=== PATIENT | male | born 1970 | race African-American/Black ===

== ENCOUNTER 2022-10-12 08:41 | Day surgery (SDC) | payer MEDICAID ==
[~2022-10-12] VITALS: Ht 180.3 cm; Wt 109.2 kg
[2022-10-12] VITALS (21 sets, daily range): BP systolic 84–134; BP diastolic 47–97
[2022-10-12] MEDS ORDERED: NS IV 1000 ML 1,000 ML IV ONE ×2 (10:00→10:15)
[2022-10-12] MEDS ORDERED: LIDOCAINE 2% VISCOUS 15 ML UDC ONE (10:02)
[2022-10-12] MEDS ORDERED: NS IV 1000 ML 1,000 ML ONE (10:02)
[2022-10-12 10:34] LABS: HEMATOCRIT 47 % (40-54); MEAN CORPUSCULAR HEMOGLOBIN 30 pg (25-34); MEAN CORPUSCULAR HGB CONC 34 g/dL (32-36); MEAN CORPUSCULAR VOLUME 87 fL (80-99); MEAN PLATELET VOLUME 11.1 fL (9.0-12.2); PLATELET COUNT 229 10^3/uL (130-400); WHITE BLOOD COUNT 3.9 10^3/uL (4.3-11.0)
--- NOTE | 2022-10-12 10:45 | Diagnostic Imaging Report ---
INDICATION: ATRIAL FIBRILLATION. TECHNIQUE: Single view chest 10:21 AM. CORRELATION STUDY: None FINDINGS: The heart size, mediastinal configuration and pulmonary vascularity are within normal limits. The lungs are clear with no consolidating infiltrate. There is no significant effusion or pneumothorax. IMPRESSION: 1. Negative appearing single view chest. Dictated by: Dictated on workstation # [id number]
[2022-10-12 10:46] LABS: INR 1.1 (0.8-1.4); PROTHROMBIN TIME PATIENT 14.4 SEC (12.2-14.7)
[2022-10-12 10:52] LABS: ALBUMIN 4.1 GM/DL (3.2-4.5); BILIRUBIN,TOTAL 1.5 MG/DL (0.1-1.0); CALCIUM 9.6 MG/DL (8.5-10.1); CREATININE SERUM 1.59 MG/DL (0.60-1.30); TOTAL PROTEIN 8.6 GM/DL (6.4-8.2)
[2022-10-12] MEDS ORDERED: IBUP-30 PO (10:55)
[2022-10-12] MEDS ORDERED: APIX5TAB PO (10:55)
[2022-10-12] MEDS ORDERED: METH-732 PO (10:55)
[2022-10-12] MEDS ORDERED: CHLO25TA22 PO (10:55)
[2022-10-12] MEDS ORDERED: DILT240C91 PO (10:55)
[2022-10-12] MEDS ORDERED: proPOfol 200 MG/20 ML (DIPRIVAN) VIAL IV ONE ×2 (11:00→11:15)
[2022-10-12] MEDS ORDERED: MIDAZOLAM 5 MG/5 ML (VERSED) VIAL ONE (11:00)
[2022-10-12] MEDS ORDERED: AMIODARONE FOR BOLUS 150 MG in NS (IVPB) 100 ML IV ONE (11:30)
--- NOTE | 2022-10-12 11:37 | Cardiac Procedure Note-CS/ASA ---
Pre-Procedure Note Pre-Op Procedure Note Date of Available H&P: Oct 06, 2022 Date H&P Reviewed: Oct 12, 2022 Time H&P Reviewed: 11:00 History & Physical: H&P Reviewed, Patient Examed, No changes noted Pre-Operative Diagnosis: Atrial fibrillation Conscious Sedation Pre-Proced Time 11:00 ASA Score 3 For ASA 3 and 4: Consider anesthesia and medical clearance. Also, for patients with a history of failed moderate sedation consider anesthesia. Airway Lungs Heart ASA score ASA 1: a normal healthy patient ASA 2: a patient with a mild systemic disease (mid diabetes, controlled hypertension, obesity ASA 3: a patient with a severe systemic disease that limits activity (angina, COPD, prior Myocardial infarction) ASA 4: a patient with an incapacitating disease that is a constant threat to life (CHF, renal failure) ASA 5: a moribund patient not expected to survive 24 hrs. (ruptured aneurysm) ASA 6: a declared brain- patient whose organs are being harvested. For emergent operations, add the letter E after the classification Mallampati Classification Grade 3 Sedation Plan Analgesia, Amnesia, Plan communicated to team members, Discussed options with patient/fam, Discussed risks with patient/fam The patient is an appropriate candidate to undergo the planned procedure, sedation, and anesthesia. The patient immediately re-assessed prior to indication. CELINE ALANIZ MD Oct 12, 2022 11:37
--- NOTE | 2022-10-12 11:38 | Cardioversion ---
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 Electrical cardioversion was carried out with anesthesia support with propofol. 200 joules of synchronized shock was delivered through external patches which promptly restored sinus rhythm. The patient tolerated the procedure well. Patient returned to atrial fibrillation, had a second shot also was unable to maintain sinus rhythm except for few seconds. I decided to load him with amiodarone and reattempt cardioversion in a.m. Conclusions: Electrical cardioversion was done, patient did not maintain sinus rhythm after t he procedure Final Diagnosis: Atrial fibrillation Tachycardia Hypertension CORBIN,CELINE Murray MD Oct 12, 2022 11:38
[2022-10-12] MEDS ORDERED: ENOXAPARIN 100 MG/1 ML (LOVENOX) SYR SC ONE (11:45)
--- NOTE | 2022-10-12 11:47 | Anesthesia-General Post-Op ---
MAC Patient Condition Mental Status/LOC: Same as Preop Cardiovascular: Satisfactory Nausea/Vomiting: Absent Respiratory: Satisfactory Pain: Controlled Complications: Absent Post Op Complications Complications None Follow Up Care/Instructions Patient Instructions None needed. Anesthesiology Discharge Order Discharge Order Patient is doing well, no complaints, stable vital signs, no apparent adverse anesthesia problems. No complications reported per nursing. GRAZYNA CORRALES CRNA Oct 12, 2022 11:47
[2022-10-12] MEDS ORDERED: ENOXAPARIN 300 MG/3 ML (LOVENOX) MULTI-DOSE VIAL SQ NR (13:45)
[2022-10-12] MEDS: AMIODARONE INJECTION 450 MG in NORMAL SALINE 250 ML IV SCH ×2 (14:11→22:29)
[2022-10-12] MEDS ORDERED: PATIENT MAY USE OWN MEDS, ALL MC SCH (15:45)
[2022-10-12] MEDS: AMIODARONE 200 MG (CORDARONE) TAB PO SCH (20:08)
[2022-10-12] MEDS: APIXABAN 5 MG (ELIQUIS) TABLET PO SCH (20:15)
[2022-10-13 03:33] VITALS: BP 107/78
[2022-10-13 07:58] VITALS: BP 114/79
[2022-10-13] MEDS ORDERED: NS IV 500 ML 500 ML ONE (08:02)
--- NOTE | 2022-10-13 08:06 | Cardiology Progress Note ---
Subjective Date Seen by Provider: Oct 13, 2022 Time Seen by Provider: 08:05 Subjective/Events-last exam Patient was seen at bedside, laying down comfortably, no new complaints still in atrial fibrillation Review of Systems General: No Chills, No Night Sweats, No Fatigue, No Malaise, No Appetite, No Other HEENT: No Head Aches, No Visual Changes, No Eye Pain, No Ear Pain, No Dysphasia, No Sinus Congestion, No Post Nasal Drip, No Sore Throat, No Other Pulmonary: No Dyspnea, No Cough, No Pleuritic Chest Pain, No Other Cardiovascular: No: Chest Pain, Palpitations, Orthopnea, Paroxysmal Noc. Dyspnea, Edema, Lt Headedness, Other Objective-Cardiology Exam Last Set of Vital Signs Vital Signs 10/13/22 07:58 Temp 36.0 Pulse 59 Resp 12 B/P (MAP) 114/79 (91) Pulse Ox 97 O2 Delivery Room Air I&O Intake and Output 10/13/22 00:00 Intake Total 2350 ml Output Total 1050 ml Balance 1300 ml Intake Oral 1200 ml IV Total 1150 ml Output Urine Total 1050 ml Daily Weight Change No General: Alert, Oriented X3, Cooperative HEENT: Atraumatic, PERRLA Neck: Supple, No JVD, No Thyromegaly Lungs: Clear to Auscultation, Normal Air Movement Heart: Normal S1, Normal S2, No Murmurs, Other (Atrial fibrillation) Abdomen: Normal Bowel Sounds, Soft, No Tenderness, No Hepatosplenomegaly, No Masses Extremities: No Clubbing, No Cyanosis, No Edema, Normal Pulses, No Tenderness/Swelling Skin: No Rashes, No Breakdown, No Significant Lesion Neuro: Normal Gait, Normal Speech, Strength at 5/5 X4 Ext, Normal Tone, Sensation Intact Psych/Mental Status: Mental Status NL, Mood NL Results Lab Laboratory Tests 10/12/22 10:24 A/P-Cardiology Admission Diagnosis Atrial fibrillation Palpitation Hypertension Hyperlipidemia Assessment/Plan Atrial fibrillation with controlled rate Underwent MITCH with cardioversion on October 12, 2022, failed to maintain sinus rhythm Started on amiodarone drip loading and continuation dose Planning to repeat cardioversion on October 13, 2022. Hypertension, monitor blood pressure Hyperlipidemia, monitor lipids Palpitation. CELINE ALANIZ MD Oct 13, 2022 08:06
--- NOTE | 2022-10-13 08:06 | Cardiac Procedure Note-CS/ASA ---
Pre-Procedure Note Pre-Op Procedure Note Date of Available H&P: Oct 06, 2022 Date H&P Reviewed: Oct 13, 2022 Time H&P Reviewed: 08:06 History & Physical: H&P Reviewed, Patient Examed, No changes noted Pre-Operative Diagnosis: Atrial fibrillation Conscious Sedation Pre-Proced Time 08:06 ASA Score 3 For ASA 3 and 4: Consider anesthesia and medical clearance. Also, for patients with a history of failed moderate sedation consider anesthesia. Airway Lungs Heart ASA score ASA 1: a normal healthy patient ASA 2: a patient with a mild systemic disease (mid diabetes, controlled hypertension, obesity ASA 3: a patient with a severe systemic disease that limits activity (angina, COPD, prior Myocardial infarction) ASA 4: a patient with an incapacitating disease that is a constant threat to life (CHF, renal failure) ASA 5: a moribund patient not expected to survive 24 hrs. (ruptured aneurysm) ASA 6: a declared brain- patient whose organs are being harvested. For emergent operations, add the letter E after the classification Mallampati Classification Grade 3 Sedation Plan Analgesia, Amnesia, Plan communicated to team members, Discussed options with patient/fam, Discussed risks with patient/fam The patient is an appropriate candidate to undergo the planned procedure, sedation, and anesthesia. The patient immediately re-assessed prior to indication. CELINE ALANIZ MD Oct 13, 2022 08:06
[2022-10-13] MEDS: APIXABAN 5 MG (ELIQUIS) TABLET PO SCH (08:36)
[2022-10-13] MEDS: AMIODARONE 200 MG (CORDARONE) TAB PO SCH (08:37)
--- NOTE | 2022-10-13 08:52 | Cardioversion ---
Cardioversion PROCEDURE PHYSICIAN: Celine Isbell DATE OF PROCEDURE: 10/13/22 DIRECT EXTERNAL ELECTRICAL CARDIOVERSION: Indications: Atrial Fibrillation with rapid ventricular rate Preoperative diagnoses: Atrial Fibrillation with rapid ventricular rate Postoperative diagnosis: Sinus rhythm, Successful Electrical Cardioversion History: Patient has paroxysmal atrial fibrillation, underwent cardioversion on October 12, 2022 failed to maintain sinus rhythm, loaded with amiodarone, had scheduled for another cardioversion Anesthesia: By Anesthesia services Complications: None Specimen: None Contrast: 0 Flouroscopy: none Procedure Details: 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 Electrical cardioversion was carried out with anesthesia support with propofol. 150 J then another shock with 120 J, both were successful in terminating atrial flutter, patient returned to atrial flutter. Conclusions: Failed cardioversion to maintain sinus rhythm, patient returned to atrial fibs in atrial flutter Final Diagnosis: Paroxysmal atrial flutter Paroxysmal atrial fibrillation Palpitation Hypertension CELINE ISBELL MD Oct 13, 2022 08:52
[2022-10-13] MEDS ORDERED: AMIO200T65 PO (08:54)
--- NOTE | 2022-10-13 08:54 | Discharge Inst-Post CATH ---
Discharge Inst-CATH/EP Problems Reviewed?: Yes Post Cardiac Cath/EP D/C Inst Follow Up/Plan Appointment with Dr. Thompson for atrial fibrillation/atrial flutter Follow-up with Dr. Isbell's office in 1 week <b>CARDIAC CATH/EP PROCEDURE DISCHARGE INSTRUCTIONS</b> ACTIVITY * Go Home directly and rest. * Limit activity of the leg (or wrist if it was used) for 7 days including aerobics, swimming, jogging, bicycling, etc. * Restrict stair-climbing for 7 days if possible, if not, climb up with your non-cath leg, then bring together on the same step. * Avoid lifting, pushing, pulling or excessive movement of the affected extremity for 7 days. * Customary sexual activity may be resumed after 2 days-use caution not to use a position that strains or causes pain to the affected extremity. * No driving for 24 hours. * NO SMOKING. * Avoid straining for bowel movements for 7 days. * Gentle walking on level ground is allowed. * Returning to work will depend on the type of procedure and the results. Your doctor will discuss this with you. CALL YOUR DOCTOR FOR ANY OF THE FOLLOWING: *If bleeding from the puncture site occurs- Apply gentle pressure to site with clean cloth and call your doctor or EMS. * If a knot or lump forms under the skin, increases in size, or causes pain. * If bruising appears to be worsening or moving further down your leg instead of disappearing. * Temperature above 101 F. CARE OF YOUR GROIN INCISION; * Bruising or purple discoloration of the skin near the puncture site is common. * You may shower only, no bathtub bathing for 5 days. Be careful to avoid slipping as your leg may feel stiff. * If a closure device was used on your femoral artery, please see the attached guide regarding care of the device and your leg. * Leave dressing on FOR 24 hours. CARE OF YOUR WRIST INCISION; * Bruising or purple discoloration of the skin near the puncture site is common. * You may shower. * DO NOT submerge wrist. * Leave dressing on FOR 24 hours. CELINE ISBELL MD Oct 13, 2022 08:54
[2022-10-13] MEDS ORDERED: CHLORTHALIDONE 25 MG TAB PO SCH (09:00)
--- NOTE | 2022-10-13 09:26 | Anesthesia-General Post-Op ---
MAC Patient Condition Mental Status/LOC: Same as Preop Cardiovascular: Satisfactory Nausea/Vomiting: Absent Respiratory: Satisfactory Pain: Controlled Complications: Absent Post Op Complications Complications None Follow Up Care/Instructions Patient Instructions None needed. Anesthesiology Discharge Order Discharge Order Patient is doing well, no complaints, stable vital signs, no apparent adverse anesthesia problems. No complications reported per nursing. DYLAN NGUYEN CRNA Oct 13, 2022 09:26
[2022-10-13] MEDS ORDERED: proPOfol 200 MG/20 ML (DIPRIVAN) VIAL IV ONE (09:38)
== END 2022-10-13 10:35 | disposition home or self-care (01) ==
LOC: SDC 08:41 → CSD 13:03 → CATH 10-13 10:35
PROVIDERS: ATTEND Internal Medicine Cardiovascular Disease
DX: I48.0 Paroxysmal atrial fibrillation (principal); I48.20 Chronic atrial fibrillation, unspecified; I10 Essential (primary) hypertension; I48.92 Unspecified atrial flutter; E78.5 Hyperlipidemia, unspecified; E66.9 Obesity, unspecified; Z68.33 Body mass index [BMI] 33.0-33.9, adult
CPT/HCPCS: 36415; 71045; 80053; 80061; 84443; 85027; 85610; 85730; 87081; 92960; 93005; 93312

== ENCOUNTER → 2022-10-12 | Outpatient (CLI) | payer MEDICAID ==
[~2022-10-12] MED LIST: AMIO200T65 PO; APIX5TAB PO; CHLO25TA22 PO; DILT240C91 PO; IBUP-30 PO; METH-732 PO
== END ==
LOC: SLEEP 08:40
PROVIDERS: ATTEND Internal Medicine Cardiovascular Disease
DX: I48.0 Paroxysmal atrial fibrillation (principal)

== ENCOUNTER → 2022-11-02 | Outpatient (CLI) | payer MEDICAID | LOC: CARD 10:35 | PROVIDERS: ATTEND Internal Medicine Cardiovascular Disease | DX: I50.22 Chronic systolic (congestive) heart failure (principal) ==